=== PATIENT | male | born 1940 | race Caucasian/White ===

== ENCOUNTER 2021-09-20 08:37 | Day surgery (SDC) | payer OTHER ==
[2021-09-20] MEDS ORDERED: CEFAZOLIN/SWI 2gm 2 GM/20 ML SYR ONE (08:52)
[2021-09-20] MEDS ORDERED: Ringers Lactate 1,000 ML IV ONE (08:52)
[2021-09-20] MEDS ORDERED: LIDOCAINE 1% MPF 5 ML VIAL ONE (10:10)
[2021-09-20] MEDS ORDERED: FENTANYL CITR 100 MCG/2 ML ONE (10:10)
[2021-09-20] MEDS ORDERED: propofoL 200 MG/20 ML VIAL IV ONE (10:10)
[2021-09-20] MEDS ORDERED: LIDOCAINE 1% W/EPI 1:100,000 MDV 50 ML VIAL ONE (10:15)
[2021-09-20] MEDS ORDERED: EPHEDRINE SULF 50 MG/ML VIAL ONE (10:30)
--- NOTE | 2021-09-20 11:18 | P.OP ---
Preoperative diagnosis: Intramuscular Lipoma of RIGHT flank, Chest + LEFT arm sebaceous cyst Postoperative diagnosis: Intramuscular Lipoma of RIGHT flank, Chest + LEFT arm sebaceous cyst Primary procedure: Excision of Intramuscular lipoma of RIGHT latissimus Secondary procedure: Excision of Sebaceous cysts of LEFT arm and chest Anesthesia: GETA + Local Estimated blood loss: <2cc Specimen: lipoma ~ 5cm x 4cm, vini cyst 1.3cm, 5mm arm cyst Findings: lipoma ~ 5cm x 4cm, vini cyst 1.3cm, 5mm arm cyst Complications: None Transferred to: Recovery Room Condition: Good
[2021-09-20] MEDS ORDERED: HYDROCODONE/APAP 7.5/325 MG TAB ONE (12:28)
[2021-09-20 14:43] VITALS: O2SAT 100
[2021-09-20 14:45] VITALS: BP 128/50; TEMP 97
--- NOTE | 2021-09-20 21:47 | OP ---
Date of Procedure: 09/20/2021 Surgeon: Pepe Pollack MD, Preoperative Diagnoses: 1.Intramuscular lipoma of the right flank. 2.Chest sebaceous cyst. 3.Left arm sebaceous cyst just lateral to the cephalic vein. Postoperative Diagnoses: 1.Intramuscular lipoma of the right flank. 2.Chest sebaceous cyst. 3.Left arm sebaceous cyst just lateral to the cephalic vein. Procedure Performed: 1.Excision of intramuscular lipoma in the right latissimus. 2.Excision of sebaceous cyst of the central chest. 3.Excision of sebaceous cyst of left arm biceps area. Anesthesia: General endotracheal plus local with 1% lidocaine with epinephrine. Estimated Blood Loss: Less than 2 cc. Specimen: Lipoma with approximately 5 cm x 4 cm intramuscular sebaceous cyst 1.3 cm and 5 mm sebaceo us cyst of the arm. Findings: Same as above. Complications: None. Disposition: The patient was transferred to recovery room in good condition. Procedure In Detail: After informed consent was obtained, the patient was brought to the operating r oom, prepped and draped in the usual sterile fashion after adequate anesthesia was achieved. A linea r incision was made down through the right flank area after appropriately anesthetizing the skin. I exposed the latissimus muscle and ultimately found the dissected bluntly following the fibers using b adelso dissection to expose the intermuscular lipoma, which was within the latissimus muscle. This was approximately 5 cm x 4 cm. I circumferentially dissected this free from the surrounding tissues usi ng an electrocautery and blunt dissection. I then delivered the lipoma into the space and ultimately sent off for pathologic examination. At this point, I turned my attention to the central chest cyst . This area was circumferentially dissected after appropriate anesthetizing the skin, removed the cy st using combination of sharp and blunt dissection with a 15 blade. This was then sent off for patho logic examination. I then copiously irrigated this area. The area of the right flank was then irrig ated copiously, suctioned out to completely dry. Hemostasis was easily achieved with electrocautery. The muscular plane was then reapproximated using 3-0 Vicryl. Deep dermal planes were closed with 3 -0 Vicryl and skin was closed with a 4-0 Monocryl in a running fashion. Dermabond was placed over to p. The chest was then irrigated. This area was closed with interrupted 3-0 Vicryl and a 4-0 Monocry l and a sterile dressing was placed over the top with Dermabond. I then turned my attention to the l eft bicipital area. I anesthetized the skin of this small approximately 5 mm cyst, circumferentially dissected this free using a scalpel. I then removed this and sent off for pathologic examination, gordy payton copiously irrigated the area and closed the area with interrupted nylons and sterile dressing was placed on top. The patient tolerated the procedure well without evidence of complication and transf erred to Postanesthesia Care Unit in good condition. All counts were correct at the end of the case. MADAN/SINAN Voice ID: [id number] Report ID: [id number]
== END 2021-09-20 14:00 | disposition home or self-care (01) ==
LOC: OR 08:37
PROVIDERS: ATTEND Surgery
PROC: 0JB70ZZ Excision of Back Subcutaneous Tissue and Fascia, Open Approach (ICD-10-PCS; 2021-09-20)
PROC: 0JB60ZZ Excision of Chest Subcutaneous Tissue and Fascia, Open Approach (ICD-10-PCS; 2021-09-20)
PROC: 0JBH0ZZ Excision of Left Lower Arm Subcutaneous Tissue and Fascia, Open Approach (ICD-10-PCS; 2021-09-20)
PROC: 0KBF0ZZ Excision of Right Trunk Muscle, Open Approach (ICD-10-PCS; principal; 2021-09-20 10:00)
DX: D17.9 Benign lipomatous neoplasm, unspecified (principal); L72.0 Epidermal cyst; Z20.822 Contact with and (suspected) exposure to COVID-19
CPT/HCPCS: 88304; 21933; 13101; 11402; 11400; U0003; J2704; J3010; J0690; J7120